=== PATIENT | male | born 1945 | race Caucasian/White ===

== ENCOUNTER 2024-02-11 13:22 | Outpatient (REF) | payer MEDICARE, SELFPAY ==
[2024-02-11 13:47] LABS: Bilirubin Urine NEGATIVE (NEGATIVE); Blood Urine NEGATIVE (NEGATIVE); Clarity Urine CLEAR (CLEAR); Color Urine LT. YELLOW (YELLOW); Glucose Urine UA NEGATIVE (NEGATIVE); Ketones Urine NEGATIVE (NEGATIVE); Leukocyte Esterase Urine NEGATIVE (NEGATIVE); Nitrite Urine NEGATIVE (NEGATIVE); Protein Urine NEGATIVE (NEG/TRACE); Specific Gravity Urine 1.015 (1.005-1.025); Urobilinogen Urine 0.2 EU/dL (0.2-1.0)
== END 2024-02-11 13:23 | disposition home or self-care (01) ==
LOC: LAB 13:22
PROVIDERS: PCP Family Medicine; Visit Provider Family Medicine
DX: C78.7 Secondary malignant neoplasm of liver and intrahepatic bile duct (principal); R82.998 Other abnormal findings in urine
CPT/HCPCS: 81003; 87086

== ENCOUNTER 2024-06-11 16:26 | Emergency (ER) | payer MEDICARE, SELFPAY ==
[2024-06-11] VITALS (32 sets, daily range): BP systolic 103–150; BP diastolic 61–89; PULSE 88–110; TEMP 37.6; O2SAT 92–98; BMI 15.6
--- NOTE | 2024-06-11 16:36 | CT_ITS ---
The [address] [address] Patient Name: AURORA ROBERTS MRN: [id number] date: 1945 Sex: M Assigned Patient Location: ER Current Patient Location: ER Accession/Order Number: [id number] Exam Date: 06/11/2024 17:06 Report Date: 06/11/2024 18:24 At the request of: NELIA SEVILLA Procedure: CT head/brain wo con EXAM: CT head/brain wo con HISTORY: ams COMPARISON: None. TECHNIQUE: Axial CT scans through the head were obtained without IV contrast administration. Dose reduction techniques were achieved by using: automated exposure control and/or adjustment of mA and /or kV according to patient size and/or use of iterative reconstruction technique. FINDINGS: There is no evidence of acute intracranial hemorrhage or abnormal extra-axial fluid collection. No mass effect or midline shift is seen. There is no evidence of large acute territorial infarction. There is no hydrocephalus. There is mild cerebral and cerebellar atrophy. 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 Mild decreased attenuation of the supratentorial white matter, likely represents chronic microvascular ischemia. There are atherosclerotic calcifications of anterior and posterior circulations. No definite acute fracture is identified. Soft tissues are unremarkable. The visualized orbits show no abnormality. There is small air-fluid level within left maxillary sinus. There are mucosal thickening of bilateral maxillary sinuses and small polyps within bilateral ethmoid air cells. Mastoid air cells are clear. CT/CT head/brain wo con IMPRESSION: No CT evidence of acute intracranial abnormality. If there is sufficient clinical concern for acute infarct, consider MRI for further evaluation. Mild chronic microvascular ischemic and involutional changes. Intracranial atherosclerosis. Small air-fluid level within left maxillary sinus, suggestive of acute sinusitis. Electronically authenticated by: MIRI ZAMORAU Date: 06/11/2024 18:24
--- NOTE | 2024-06-11 16:36 | XR_ITS ---
The [address] [address] Patient Name: AURORA ROBERTS MRN: [id number] date: 1945 Sex: M Assigned Patient Location: ER Current Patient Location: Accession/Order Number: [id number] Exam Date: 06/11/2024 17:00 Report Date: 06/11/2024 18:34 At the request of: NELIA SEVILLA Procedure: XR chest 1V EXAM: XR chest 1V HISTORY: cough COMPARISON: None. TECHNIQUE: AP upright chest x-ray. FINDINGS: Diffuse coarsened interstitial markings especially at the lung bases question whether this is a chronic fibrosis or interstitial inflammatory process/pneumonitis. Nodular density seen just above the lateral to each hilum, 2.1 cm on the right with irregular margins, 1.4 cm oval-shaped smooth margins on the left. May reflect neoplasm.. No dense consolidation. No edema. Heart size normal for technique. No definite mediastinal mass or adenopathy. MediPort catheter tip projects in the area of the right hilum, approximate mid to distal SVC. No pleural effusion or pneumothorax. No suspicious bone lesion. XR/XR chest 1V IMPRESSION: Abnormal lung stevens with diffusely coarsened lung markings question whether this acute pneumonitis or chronic or combination. No dense consolidation. Nodular densities noted in each lung, 2.1 cm right and 1.4 cm left. Neoplasm not excluded. Warrants follow-up or additional imaging. Electronically authenticated by: PAUL CASTAÑEDA Date: 06/11/2024 18:34
[2024-06-11 16:52] LABS: Basophils Percent Auto 0.3 % (0.2-2.0); Eosinophils Percent Auto 0.2 % (0.9-7.0); Hematocrit 34.9 % (42.0-54.0); Hemoglobin 10.8 g/dL (14.0-18.0); Immature Granulocytes Abs Auto 0.09 10^3/uL (0.00-0.03); Immature Granulocytes Pct Auto 0.7 % (0.0-0.5); Lymphocytes Absolute Auto 0.8 10^3/uL (1.2-3.8); Lymphocytes Percent Auto 5.8 % (20.5-60.0); Mean Corpuscular HGB Conc 30.9 g/dL (29.9-35.2); Mean Corpuscular Hemoglobin 30.5 pg (25.9-34.0); Mean Corpuscular Volume 98.6 fL (80.0-94.0); Mean Platelet Volume 8.7 fL (9.5-13.5); Monocytes Absolute Auto 0.9 10^3/uL (0.3-0.8); Monocytes Percent Auto 6.6 % (1.7-12.0); Neutrophils Absolute Auto 11.8 10^3/uL (1.4-6.5); Neutrophils Percent Auto 86.4 % (43.0-75.0); Platelet Count 287 10^3/uL (150-450); Red Blood Count 3.54 10^6/uL (4.70-6.10); Red Cell Distribution Width 15.3 % (11.0-15.0); White Blood Count 13.7 10^3/uL (4.0-11.0)
[2024-06-11 17:04] LABS: INR 1.08; Prothrombin Time 11.4 sec (9.0-11.6)
[2024-06-11 17:08] LABS: Alanine Aminotransferase 16 U/L (16-63); Albumin Globulin Ratio 0.4; Albumin Level 1.7 g/dL (3.4-5.0); Alkaline Phosphatase 321 U/L (46-116); Anion Gap 11.1; Aspartate Amino Transferase 32 U/L (15-37); BUN Creatinine Ratio 15.7; Bilirubin Total 0.7 mg/dL (0.2-1.0); Calcium 8.9 mg/dL (8.5-10.1); Carbon Dioxide 29.3 mmol/L (21.0-32.0); Chloride 98 mmol/L (98-107); Estimated GFR (African America >60 (>=60 mL/min/1.73m^2); Estimated GFR (Non-African Ame >60 (>=60 mL/min/1.73m^2); Globulin 4.5 g/dL; Glucose 85 mg/dL (74-106); Potassium 4.4 mmol/L (3.5-5.1); Sodium 134 mmol/L (136-145); Total Protein 6.2 g/dL (6.4-8.2)
--- NOTE | 2024-06-11 17:10 | ECG_ITS ---
The [facility] Test Date: 2024-06-11 Pat Name: UARORA ROBERTS Department: Room: - Gender: Male Assistant Director Of Nursing: : 1945 Requested By: [id number] Order Number: [id number] Reading MD: MERCY GUTIERREZ Measurements Intervals [place] Rate: 103 P: 270 KS: 126 QRS: 69 QRSD: 78 T: 262 QT: 334 QTc: 394 Interpretive Statements Sinus tachycardia 1474 with frequent supraventricular premature complexes [address] depression, possible subendocardial injury 4364 Twave abnormality, possible anterolateral ischemia 4664 Twave abnormality, possible inferior ischemia 9150 abnormal ECG No previous ECG available for comparison Electronically Signed On 06-12-2024 6:49:01 EST by MERCY GUTIERREZ
--- NOTE | 2024-06-11 17:23 | ED_ITS ---
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 and he is in hospice care at home, the patient daughter who lives with him is on vacation for the last 7 days he does have a daily caregiver who comes and see him, The patient apparently was not acting himself all day and was lethargic and that why they brought him to the ER There was no specific complaint that the patient had he have a history of decubital ulcer that been developing over the last weeks with daily dressing by the home health care nurse the patient also have a ulcer to his right foot that also has been chronic The patient was not eating all day because he is lethargic according to his caregiver at the bedside Related Data Allergies Allergy/AdvReac Type Severity Reaction Status Date / Time No Known Drug Allergies Allergy Verified 06/11/24 16:34 Review of Systems ROS Status of ROS 10 or more systems reviewed and unremark able except as noted in history and below Exam Constitutional Vital Signs, click to edit/add: Last Vital Signs Temp 99.7 F 06/11/24 16:30 Pulse 94 H 06/11/24 18:30 Resp 18 06/11/24 18:30 BP 137/78 06/11/24 18:02 Pulse Ox 94 L 06/11/24 17:10 O2 Del Method Nasal Cannula 06/11/24 17:10 O2 Flow Rate 3 06/11/24 17:10 Course Vital Signs Vital signs: Vital Signs Temperature 99.7 F 06/11/24 16:30 Pulse Rate 106 H 06/11/24 16:30 Respiratory Rate 24 H 06/11/24 16:30 Blood Pressure 150/89 H 06/11/24 16:30 Pulse Oximetry 92 L 06/11/24 16:30 Oxygen Delivery Method Nasal Cannula 06/11/24 16:30 Oxygen Delivery Flow Rate 3 06/11/24 16:30 Temperature 99.7 F 06/11/24 16:30 Pulse Rate 94 H 06/11/24 18:30 Respiratory Rate 18 06/11/24 18:30 Blood Pressure 137/78 06/11/24 18:02 Pulse Oximetry 94 L 06/11/24 17:10 Oxygen Delivery Method Nasal Cannula 06/11/24 17:10 Oxygen Delivery Flow Rate 3 06/11/24 17:10 MDM - Altered Mental Status MDM Narrative Medical decision making narrative: EKG showing sinus rhythm with a heart rate of [address] elevation noted The patient have multiple infectious sites including decubital ulcer bilaterally and also his toe infection the right foot , right now his mental status with abnormal he was awake alert and apparently although sometimes he will fall asleep he will wake up easily, he does take morphine daily for pain and that could be affecting his mental status as well CBC shows some leukocytosis and the patient was provided with some fluid in the ER chemistry did not show any acute pathology The patient was distressed to move in the bed because of his decubital ulcer he was provided with Toradol for the pain Right now I spoke with the caregiver and I did explain extensively that the patient is colon cancer and metastasis to the liver with a x-ray of the lung shows possibly metastasis there to with a nodule I did explain to her that the patient has not been getting treated for his decubital ulcer and that could be a source of his infection, due to the fact that I am not going to distress the patient who is already a hospice care and did not have any complaint with the [place] catheter just to draw urine for diagnosis of possible urine infection the patient will be covered with Keflex for his decubital ulcer as well as urine infection The patient has a caregiver at home all the time and he also have his daughter just coming to the bedside, I extensively explained to the caregiver that the patient is hospice care with a terminal diagnosis and his progression of symptoms could continue even with the antibiotic on board specially with the multiple sources of infection and the fact that he is not a surgery candidate for his decubitus ulcer and the fact that he is a hospice care patient who does not have any complaint at the moment except for his back pain that is a chronic The patient caregiver at the bedside understands and I did offer to explain any more question to the daughter Patient was discharged home with Keflex Lab Data Labs: Lab Results 06/11/24 Range/Units 16:44 WBC 13.7 H (4.0-11.0) 10^3/uL RBC 3.54 L (4.70-6.10) 10^6/uL Hgb 10.8 L (14.0-18.0) g/dL Hct 34.9 L (42.0-54.0) % MCV 98.6 H (80.0-94.0) fL MCH 30.5 (25.9-34.0) pg MCHC 30.9 (29.9-35.2) g/dL RDW 15.3 H (11.0-15.0) % Plt Count 287 (150-450) 10^3/uL MPV 8.7 L (9.5-13.5) fL Neut % (Auto) 86.4 H (43.0-75.0) % Lymph % (Auto) 5.8 L (20.5-60.0) % [place] % (Auto) 6.6 (1.7-12.0) % Eos % (Auto) 0.2 L (0.9-7.0) % Baso % (Auto) 0.3 (0.2-2.0) % Neut # (Auto) 11.8 H (1.4-6.5) 10^3/uL Lymph # (Auto) 0.8 L (1.2-3.8) 10^3/uL [place] # (Auto) 0.9 H (0.3-0.8) 10^3/uL Eos # (Auto) 0.0 (0.0-0.7) 10^3/uL Baso # (Auto) 0.0 (0.0-0.1) 10^3/uL Abs Immat Gran (auto) 0.09 H (0.00-0.03) 10^3/uL Imm/Tot Granulo (auto) 0.7 H (0.0-0.5) % PT 11.4 (9.0-11.6) sec INR 1.08 Sodium 134 L (136-145) mmol/L Potassium 4.4 (3.5-5.1) mmol/L Chloride 98 (98-107) mmol/L Carbon Dioxide 29.3 (21.0-32.0) mmol/L Anion Gap 11.1 BUN 16.0 (7.0-18.0) mg/dL Creatinine 1.02 (0.70-1.30) mg/dL Est GFR ( Amer) >60 (>=60 mL/min/1.73m^2) Est GFR (Non-Af Amer) >60 (>=60 mL/min/1.73m^2) BUN/Creatinine Ratio 15.7 Glucose 85 (74-106) mg/dL Calcium 8.9 (8.5-10.1) mg/dL Total Bilirubin 0.7 (0.2-1.0) mg/dL AST 32 (15-37) U/L ALT 16 (16-63) U/L Alkaline Phosphatase 321 H (46-116) U/L Total Protein 6.2 L (6.4-8.2) g/dL Albumin 1.7 L (3.4-5.0) g/dL Globulin 4.5 g/dL Albumin/Globulin Ratio 0.4 Discharge Plan Discharge Chief Complaint: Altered Mental Status Clinical Impression: Bacterial UTI, Decubital ulcer, Decubitus ulcer, infected, Lung nodule Patient Disposition: Home, Self-Care Time of Disposition Decision: 18:50 Condition: Good Print Language: Filipino Instructions: Urinary Tract Infection in Men (DC), Cellulitis (ED), Pressure Injury (ED), Chronic Wounds (ED) Referrals: PENNIE GUERRA [Primary Care Provider] - 1 week
[2024-06-11] MEDS: 0.9 % SODIUM CHLORIDE 1,000 ML 500 ML IV (17:56)
[2024-06-11] MEDS: KETOROLAC TROMETHAMINE 30 MG/ML VIAL 15 MG IVP (17:57)
[2024-06-11] MEDS: CEFTRIAXONE 1,000 MG in 0.9 % SODIUM CHLORIDE 50 ML 100 MG IV (19:13)
[2024-06-11 21:39] LABS: Clarity Urine CLEAR (CLEAR); Color Urine YELLOW (YELLOW); Specific Gravity Urine 1.015 (1.005-1.025)
[2024-06-11 21:41] LABS: Bilirubin Urine NEGATIVE (NEGATIVE); Blood Urine NEGATIVE (NEGATIVE); Glucose Urine UA NEGATIVE (NEGATIVE); Ketones Urine NEGATIVE (NEGATIVE); Leukocyte Esterase Urine NEGATIVE (NEGATIVE); Nitrite Urine NEGATIVE (NEGATIVE); Protein Urine NEGATIVE (NEG/TRACE); Urine Microscopic Indicated NO; Urobilinogen Urine 0.2 EU/dL (0.2-1.0)
== END 2024-06-11 22:50 | disposition home or self-care (01) ==
PROVIDERS: Emergency Provider Emergency Medicine; PCP Family Medicine
DX: N39.0 Urinary tract infection, site not specified (principal); R91.1 Solitary pulmonary nodule; L89.90 Pressure ulcer of unspecified site, unspecified stage; L08.9 Local infection of the skin and subcutaneous tissue, unspecified; J44.9 Chronic obstructive pulmonary disease, unspecified; Z99.81 Dependence on supplemental oxygen; C18.9 Malignant neoplasm of colon, unspecified; C78.7 Secondary malignant neoplasm of liver and intrahepatic bile duct
CPT/HCPCS: 36415; 70450; 71045; 80053; 81003; 85025; 85610; 93005; 96361; 96365; 96375; 99285; J0696; J1885